=== PATIENT | male | born 1955 | race Caucasian/White ===

== ENCOUNTER 2017-08-20 06:22 | Emergency (ER) | payer OTHER ==
[~2017-08-20] VITALS: Ht 177.8 cm; Wt 100.0 kg
[2017-08-20] MEDS ORDERED: AMLO2.5T PO (06:32)
[2017-08-20] MEDS ORDERED: ASPI-516 CHEW (06:33)
[2017-08-20 06:34] VITALS: BP_SYST 156; BP_SYST 182; BP_DIAS 78; BP_DIAS 89; PULSE 68; RESP 16; O2SAT 96
[2017-08-20 06:49] VITALS: O2SAT 96
--- NOTE | 2017-08-20 06:51 | PD ---
HPI Chief Complaint: Chest Pain Time Seen by Provider: 06:46 Travel History International Travel<30 days: No Contact w/Intl Traveler<30days: No Traveled to known affect area: No History of Present Illness HPI Patient presents to the emergency department complaining of chest pain. We will cut this morning approximately 438 with pain in the shoulder that radiated to his left arm and left chest. New onset, constant 1 hour, chest pain now 4 out of 10, aggravated by lying down, alleviated by ambulating. He took 2 baby aspirin this morning prior to ER arrival. He denies fever, chills, nausea, vomiting, dyspnea, lower extremity edema, but reports recent travel as he is visiting from [place]. [facility] Past Medical History Diminished Hearing: No Hypertension: Yes Past Surgical History Other Surgery: Yes (TORN PECTORAL 11/2016) Social History Alcohol Use: Yes ([facility]) Tobacco Use: No Substance Use: No Allergies-Medications (Allergen,Severity, Reaction): Coded Allergies: No Known Allergies (Unverified , 08/20/17) Reported Meds & Prescriptions Reported Meds & Active Scripts Active Reported Aspirin 81 Mg Chew 81 Mg CHEW DAILY Amlodipine (Amlodipine Besylate) 2.5 Mg Tab 2.5 Mg PO DAILY Review of Systems Except as stated in HPI: all other systems reviewed are Neg Physical Exam Narrative GENERAL: No acute distress. SKIN: Focused skin assessment warm/dry. HEAD: Atraumatic. Normocephalic. EYES: Pupils equal and round. No scleral icterus. No injection or drainage. ENT: No nasal bleeding or discharge. Mucous membranes pink and moist. NECK: Trachea midline. No JVD. CARDIOVASCULAR: Regular rate and rhythm. No murmur appreciated. Chest wall nontender. 2+ radial/DP pulses bilaterally RESPIRATORY: No accessory muscle use. Clear to auscultation. Breath sounds equal bilaterally. GASTROINTESTINAL: Abdomen soft, non-tender, nondistended. Hepatic and splenic margins not palpable. MUSCULOSKELETAL: No obvious deformities. No clubbing. No cyanosis. No edema. NEUROLOGICAL: Awake and alert. No obvious cranial nerve deficits. Motor grossly within normal limits. Normal speech. PSYCHIATRIC: Appropriate mood and affect; insight and judgment normal. Data Data Last Documented VS Vital Signs Date Time Temp Pulse Resp B/P (MAP) Pulse Ox O2 Delivery O2 Flow Rate FiO2 08/20/17 07:11 20 08/20/17 07:10 66 137/76 (96) 95 Room Air Orders Orders Electrocardiogram (08/20/17 06:46) B-Type Natriuretic Peptide (08/20/17 06:46) Ckmb (Isoenzyme) Profile (08/20/17 06:46) Complete Blood Count With Diff (08/20/17 06:46) Comprehensive Metabolic Panel (08/20/17 06:46) D-Dimer (08/20/17 06:46) Magnesium (Mg) (08/20/17 06:46) Prothrombin Time / Inr (Pt) (08/20/17 06:46) Act Partial Throm Time (Ptt) (08/20/17 06:46) Troponin I (08/20/17 06:46) Chest, Single Ap (08/20/17 06:46) Ecg Monitoring (08/20/17 06:46) Bilateral Bp Monitoring (08/20/17 06:46) Iv Access Insert/Monitor (08/20/17 06:46) Oximetry (08/20/17 06:46) Oxygen Administration (08/20/17 06:46) Aspirin Chew (Aspirin Chew) (08/20/17 07:00) Sodium Chloride 0.9% Flush (Ns Flush) (08/20/17 07:00) Nitroglycerin Sl (Nitrostat Sl) (08/20/17 07:00) Labs Laboratory Tests Test 08/20/17 06:50 White Blood Count 10.3 TH/MM3 Red Blood Count 4.86 MIL/MM3 Hemoglobin 15.6 GM/DL Hematocrit 43.3 % Mean Corpuscular Volume 89.1 FL Mean Corpuscular Hemoglobin 32.0 PG Mean Corpuscular Hemoglobin Concent 35.9 % Red Cell Distribution Width 12.7 % Platelet Count 335 TH/MM3 Mean Platelet Volume 7.8 FL Neutrophils (%) (Auto) 66.8 % Lymphocytes (%) (Auto) 16.7 % Monocytes (%) (Auto) 10.7 % Eosinophils (%) (Auto) 4.5 % Basophils (%) (Auto) 1.3 % Neutrophils # (Auto) 6.9 TH/MM3 Lymphocytes # (Auto) 1.7 TH/MM3 Monocytes # (Auto) 1.1 TH/MM3 Eosinophils # (Auto) 0.5 TH/MM3 Basophils # (Auto) 0.1 TH/MM3 CBC Comment DIFF FINAL Differential Comment MDM Medical Decision Making Medical Screen Exam Complete: Yes Emergency Medical Condition: Yes Interpretation(s) ECG: Sinus rhythm, rate 72, left axis deviation, normal intervals, T-wave inversion in V1 and III, no ST elevation or depression Differential Diagnosis ACS, PE, costochondritis,musculoskeletal pain Narrative Course Patient presents with left-sided chest pain. Will get chest x-ray, EKG, labs. Patient given 162mg aspirin as he took 2 baby aspirin prior to ER arrival. Also given 1 sublingual nitroglycerin for active chest pain. 0711: Patient signed out to Dr. May pending final dispo. Labs and XR results pending. Diagnosis Primary Impression: Chest pain Qualified Codes: R07.9 - Chest pain, unspecified Condition: Stable Carmelita Campos MD August 20, 2017 06:51
[2017-08-20] MEDS ORDERED: NITROGLYCERIN 0.4 MG SL 25 TABS/BTL SL ONE (07:00)
[2017-08-20] MEDS ORDERED: ASPIRIN 81 MG CHEW TAB PO ONE (07:00)
[2017-08-20] MEDS ORDERED: SODIUM CHLORIDE 0.9% FLUSH 10 ML FLUSH IVF PRN (07:00)
[2017-08-20 07:01] LABS: AUTOMATED NEUTROPHIL # 6.9 TH/MM3 (1.8-7.7); BASOPHIL # 0.1 TH/MM3 (0-0.2); BASOPHIL % 1.3 % (0.0-2.0); EOSINOPHIL # 0.5 TH/MM3 (0-0.4); EOSINOPHIL % 4.5 % (0.0-4.0); HEMATOCRIT 43.3 % (39.0-51.0); HEMOGLOBIN 15.6 GM/DL (13.0-17.0); LYMPH % 16.7 % (9.0-44.0); LYMPHOCYTE # 1.7 TH/MM3 (1.0-4.8); MEAN CELL VOLUME 89.1 FL (80.0-100.0); MEAN CORPUSCULAR HGB CONC 35.9 % (32.0-36.0); MEAN PLATELET VOLUME 7.8 FL (7.0-11.0); MONO % 10.7 % (0.0-8.0); MONOCYTE # 1.1 TH/MM3 (0-0.9); NEUT % 66.8 % (16.0-70.0); PLATELET COUNT 335 TH/MM3 (150-450); RED BLOOD COUNT 4.86 MIL/MM3 (4.50-5.90); RED CELL DISTRIBUTION WIDTH 12.7 % (11.6-17.2); WHITE BLOOD COUNT 10.3 TH/MM3 (4.0-11.0)
[2017-08-20 07:10] VITALS: BP 137/76; PULSE 66; RESP 20; O2SAT 95
--- NOTE | 2017-08-20 07:10 | RADRPT ---
EXAM DATE/TIME: 08/20/2017 06:56 [facility] COMPARISON: No previous studies available for comparison. INDICATIONS : Left chest/shoulder pain radiating down arm. MEDICAL HISTORY : Hypertension. SURGICAL HISTORY : None. ENCOUNTER: Initial ACUITY: 1 day PAIN SCORE: 3/10 LOCATION: Left chest FINDINGS: A single view of the chest demonstrates the lungs to be symmetrically aerated without evidence of inf iltrate or effusion. There is a calcified granuloma in the right upper lung. The cardiomediastinal c ontours are unremarkable. Osseous structures are intact. CONCLUSION: No acute disease. Js Duron MD on August 20, 2017 at 7:08 Board Certified Radiologist. This report was verified electronically.
[2017-08-20 07:11] VITALS: RESP 20
[2017-08-20 07:16] LABS: PROTHROMBIN TIME - PATIENT 9.9 SEC (9.8-11.6)
[2017-08-20 07:17] LABS: D-DIMER 0.39 MG/L FEU (0.00-0.50)
[2017-08-20 08:31] LABS: ALT (GPT) 22 U/L (12-78)
[2017-08-20 08:35] LABS: ALBUMIN 3.3 GM/DL (3.4-5.0); ALKALINE PHOSPHATASE 54 U/L (45-117); AST (GOT) 28 U/L (15-37); BLOOD UREA NITROGEN 11 MG/DL (7-18); CALCIUM 8.3 MG/DL (8.5-10.1); CHLORIDE 104 MEQ/L (98-107); CREATININE 0.88 MG/DL (0.60-1.30); GLOMERULAR FILTRATION RATE 88 ML/MIN (>89); GLUCOSE,RANDOM 94 MG/DL (74-106); SODIUM (NA) 139 MEQ/L (136-145); TOTAL BILIRUBIN ADULT 0.3 MG/DL (0.2-1.0); TROPONIN I LESS THAN 0.02 NG/ML (0.02-0.05)
[2017-08-20 08:40] LABS: TOTAL PROTEIN 6.4 GM/DL (6.4-8.2)
--- NOTE | 2017-08-20 08:58 | PD ---
Physical Exam Narrative GENERAL: 62-year-old male in no apparent distress SKIN: Focused skin assessment warm/dry. HEAD: Atraumatic. Normocephalic. EYES: Pupils equal and round. No scleral icterus. No injection or drainage. ENT: No nasal bleeding or discharge. Mucous membranes pink and moist. NECK: Trachea midline. No JVD. CARDIOVASCULAR: Regular rate and rhythm. No murmur appreciated. RESPIRATORY: No accessory muscle use. No increased effort GASTROINTESTINAL: Abdomen soft, non-tender, nondistended. MUSCULOSKELETAL: No obvious deformities. No clubbing. No cyanosis. NEUROLOGICAL: Awake and alert. No obvious cranial nerve deficits. Motor grossly within normal limits. Normal speech. PSYCHIATRIC: Appropriate mood and affect; insight and judgment normal. Data Data Last Documented VS Vital Signs Date Time Temp Pulse Resp B/P (MAP) Pulse Ox O2 Delivery O2 Flow Rate FiO2 08/20/17 07:11 20 08/20/17 07:10 66 137/76 (96) 95 Room Air Orders Orders Electrocardiogram (08/20/17 06:46) B-Type Natriuretic Peptide (08/20/17 06:46) Ckmb (Isoenzyme) Profile (08/20/17 06:46) Complete Blood Count With Diff (08/20/17 06:46) Comprehensive Metabolic Panel (08/20/17 06:46) D-Dimer (08/20/17 06:46) Magnesium (Mg) (08/20/17 06:46) Prothrombin Time / Inr (Pt) (08/20/17 06:46) Act Partial Throm Time (Ptt) (08/20/17 06:46) Troponin I (08/20/17 06:46) Chest, Single Ap (08/20/17 06:46) Ecg Monitoring (08/20/17 06:46) Bilateral Bp Monitoring (08/20/17 06:46) Iv Access Insert/Monitor (08/20/17 06:46) Oximetry (08/20/17 06:46) Oxygen Administration (08/20/17 06:46) Aspirin Chew (Aspirin Chew) (08/20/17 07:00) Sodium Chloride 0.9% Flush (Ns Flush) (08/20/17 07:00) Nitroglycerin Sl (Nitrostat Sl) (08/20/17 07:00) Labs Laboratory Tests Test 08/20/17 06:50 08/20/17 08:03 White Blood Count 10.3 TH/MM3 Red Blood Count 4.86 MIL/MM3 Hemoglobin 15.6 GM/DL Hematocrit 43.3 % Mean Corpuscular Volume 89.1 FL Mean Corpuscular Hemoglobin 32.0 PG Mean Corpuscular Hemoglobin Concent 35.9 % Red Cell Distribution Width 12.7 % Platelet Count 335 TH/MM3 Mean Platelet Volume 7.8 FL Neutrophils (%) (Auto) 66.8 % Lymphocytes (%) (Auto) 16.7 % Monocytes (%) (Auto) 10.7 % Eosinophils (%) (Auto) 4.5 % Basophils (%) (Auto) 1.3 % Neutrophils # (Auto) 6.9 TH/MM3 Lymphocytes # (Auto) 1.7 TH/MM3 Monocytes # (Auto) 1.1 TH/MM3 Eosinophils # (Auto) 0.5 TH/MM3 Basophils # (Auto) 0.1 TH/MM3 CBC Comment DIFF FINAL Differential Comment Prothrombin Time 9.9 SEC Prothromb Time International Ratio 1.0 RATIO Activated Partial Thromboplast Time 25.7 SEC D-Dimer Quantitative (PE/DVT) 0.39 MG/L FEU B-Type Natriuretic Peptide 30 PG/ML Blood Urea Nitrogen 11 MG/DL Creatinine 0.88 MG/DL Random Glucose 94 MG/DL Total Protein 6.4 GM/DL Albumin 3.3 GM/DL Calcium Level 8.3 MG/DL Magnesium Level 2.0 MG/DL Alkaline Phosphatase 54 U/L Aspartate Amino Transf (AST/SGOT) 28 U/L Alanine Aminotransferase (ALT/SGPT) 22 U/L Total Bilirubin 0.3 MG/DL Sodium Level 139 MEQ/L Potassium Level 4.6 MEQ/L Chloride Level 104 MEQ/L Carbon Dioxide Level 28.0 MEQ/L Anion Gap 7 MEQ/L Estimat Glomerular Filtration Rate 88 ML/MIN Total Creatine Kinase 95 U/L Troponin I LESS THAN 0.02 NG/ML MDM Supervised Visit with GLENDY: No Interpretation(s) CBC & BMP Diagram 08/20/17 06:50 08/20/17 08:03 Total Protein 6.4, Albumin 3.3 L, Calcium Level 8.3 L, Magnesium Level 2.0, Alkaline Phosphatase 54, Aspartate Amino Transf (AST/SGOT) 28, Alanine Aminotransferase (ALT/SGPT) 22, Total Bilirubin 0.3 Narrative Course Signed over to me to follow blood work and reevaluate. Lab work within normal limits. Given patient's age, hypertension and family history of heart disease recommended chest pain center observation. This was declined. AMA: The risks of leaving against medical advice without further evaluation treatment were discussed with the patient. These risks include cardiac dysfunction, cardiac dysrhythmia, possible heart attack, possible stroke or . The patient indicated understanding of these risks and appeared to have the capacity to make this decision. Diagnosis Primary Impression: Chest pain Qualified Codes: R07.9 - Chest pain, unspecified Patient Instructions: General Instructions Additional Instruction: Return at any time for completion of your testing Disposition: 07 AGAINST MEDICAL ADVICE Condition: Stable Lynne May MD August 20, 2017 08:58
--- NOTE | 2017-08-20 10:33 | EKG ---
Date Performed: 08/20/2017 Time Performed: 06:30:34 PTAGE: 62 years EKG: Normal Sinus rhythm Borderline left axis deviation NO PREVIOUS TRACING DOCTOR: Dusty Fitzgerald Interpretating Date/Time 08/20/2017 10:32:10
== END 2017-08-20 09:01 | disposition left against medical advice (07) ==
LOC: NEPC 06:22
DX: R07.9 Chest pain, unspecified (principal); I10 Essential (primary) hypertension; Z79.899 Other long term (current) drug therapy
CPT/HCPCS: 71045; 80053; 82550; 83735; 83880; 84484; 85025; 85379; 85610; 85730; 93005